=== PATIENT | male | born 1945 | race Caucasian/White ===

== ENCOUNTER 2016-09-02 16:50 | Emergency (ER) | payer MEDICARE, OTHER ==
[~2016-09-02 16:50] MED LIST: ALBUTEROL IN200 PUFF INH; COLACE100 MG PO; DUONEB 2.5-0.5MG3 ML NEB; FLOVENT INH; HYDROCODON-ACE1 EAC6 PO; LEVAQUIN500 MG PO; MEDROL4 M1 PO; MIRALAX17 GM PO; NEURONTIN400 MG PO; PRILOSEC20 MG PO
[2016-09-02 17:49] LABS: BASO % 0.1 % (0.2-1.2); EOS % 0.3 % (0.8-7.0); GRAN # 6.3 10_X3_uL (1.8-5.4); GRAN % 64.3 % (34.0-67.9); HEMATOCRIT 44.4 % (40-51); HEMOGLOBIN 14.8 g/dL (13.7-17.5); LYMPH # 2.3 10_X3_uL (1.3-3.6); LYMPH % 23.6 % (21.8-53.1); MEAN CORPUSCULAR HEMOGLOBIN 30.2 pg (27.0-33.0); MEAN CORPUSCULAR HGB CONC 33.3 g/dL (32.0-36.0); MEAN CORPUSCULAR VOLUME 90.6 fL (79-92); MEAN PLATELET VOLUME 10.1 fl (7.5-11.5); MONO # 1.1 10_X3_uL (0.3-0.8); MONO % 11.7 % (5.3-12.2); PLATELET COUNT 339 x10_3/uL (163-337); RED CELL DISTRIBUTION WIDTH 15.5 % (11.6-14.4); WHITE BLOOD COUNT 9.8 x10_3/uL (4.2-9.1)
[2016-09-02 18:06] LABS: ALBUMIN 4.3 gm/dL (3.4-5.0); BILIRUBIN,TOTAL 0.36 mg/dL (0.0-1.0); CALCIUM 9.6 mg/dL (8.7-10.7); CREATININE 1.3 mg/dL (0.6-1.3); POTASSIUM 3.8 mmol/L (3.5-5.1)
[2016-09-02 20:04] LABS: URINE BILIRUBIN NEGATIVE (NEGATIVE); URINE BLOOD TRACE (NEGATIVE); URINE GLUCOSE (UA) NORMAL (NORMAL); URINE KETONE NEGATIVE (NEGATIVE); URINE LEUKOCYTE ESTERASE NEGATIVE (NEGATIVE); URINE NITRATE NEGATIVE (NEGATIVE); URINE PROTEIN NEGATIVE (NEGATIVE); UROBILINOGEN NORMAL mg/dL (<1.0)
[2016-09-02 20:20] LABS: URINE AMORPHOUS SEDIMENT 1+; URINE BACTERIA TRACE (NONE SEEN)
== END 2016-09-02 19:50 | disposition home or self-care (01) ==
LOC: ER 16:50
PROVIDERS: Emergency Medicine
DX: R10.13 Epigastric pain (principal); J44.9 Chronic obstructive pulmonary disease, unspecified; Z90.49 Acquired absence of other specified parts of digestive tract; F17.210 Nicotine dependence, cigarettes, uncomplicated; Z88.6 Allergy status to analgesic agent; Z79.899 Other long term (current) drug therapy; Z82.49 Family history of ischemic heart disease and other diseases of the circulatory system
CPT/HCPCS: 36415; 51701; 74150; 80053; 81001; 82150; 82550; 82553; 83690; 85025; 93005; 99284; 99284-25

== ENCOUNTER 2016-09-09 14:45 | Emergency (ER) | payer MEDICARE, SELFPAY | END 2016-09-09 15:15 | disposition home or self-care (01) | LOC: ER 14:45 | DX: K21.9 Gastro-esophageal reflux disease without esophagitis (principal); J44.9 Chronic obstructive pulmonary disease, unspecified; Z99.81 Dependence on supplemental oxygen; R06.02 Shortness of breath; F17.210 Nicotine dependence, cigarettes, uncomplicated; Z88.6 Allergy status to analgesic agent | CPT/HCPCS: 99282; 99283 ==

== ENCOUNTER 2016-10-06 18:30 | Emergency (ER) | payer MEDICARE ==
[2016-10-06 19:12] LABS: BASO % 0.1 % (0.2-1.2); EOS # 0.1 10_X3_uL (0.0-0.5); EOS % 0.7 % (0.8-7.0); GRAN # 6.9 10_X3_uL (1.8-5.4); GRAN % 71.7 % (34.0-67.9); HEMATOCRIT 42.3 % (40-51); LYMPH # 1.7 10_X3_uL (1.3-3.6); LYMPH % 17.2 % (21.8-53.1); MEAN CORPUSCULAR HEMOGLOBIN 29.7 pg (27.0-33.0); MEAN CORPUSCULAR HGB CONC 33.1 g/dL (32.0-36.0); MEAN CORPUSCULAR VOLUME 89.6 fL (79-92); MEAN PLATELET VOLUME 10.5 fl (7.5-11.5); MONO % 10.3 % (5.3-12.2); PLATELET COUNT 273 x10_3/uL (163-337); RED BLOOD COUNT 4.72 x10_6/uL (4.6-6.1); RED CELL DISTRIBUTION WIDTH 14.7 % (11.6-14.4); WHITE BLOOD COUNT 9.6 x10_3/uL (4.2-9.1)
[2016-10-06 19:43] LABS: ALBUMIN 4.4 gm/dL (3.4-5.0); ALKALINE PHOSPHATASE 61 U/L (50-136); ALT/SGPT 9 U/L (7.53-40.17); AST/SGOT 15 U/L (6.66-35.34); BILIRUBIN,TOTAL 0.45 mg/dL (0.0-1.0); CALCIUM 9.7 mg/dL (8.7-10.7); CARBON DIOXIDE 29 mmol/L (21-32); CREATINE KINASE 110 U/L (35-232); CREATININE 1.2 mg/dL (0.6-1.3); GLUCOSE,RANDOM 129 mg/dL (70-99); LIPASE 18 U/L (6.75-60.75); POTASSIUM 3.7 mmol/L (3.5-5.1); SODIUM 137 mmol/L (136-145); TOTAL PROTEIN 6.8 gm/dL (6.4-8.2)
[2016-10-06 19:47] LABS: BLOOD UREA NITROGEN 23 mg/dL (7-18)
== END 2016-10-06 21:08 | disposition home or self-care (01) ==
LOC: ER 18:30
PROVIDERS: Internal Medicine
DX: K21.9 Gastro-esophageal reflux disease without esophagitis (principal); F41.9 Anxiety disorder, unspecified; R06.4 Hyperventilation; J60 Coalworker's pneumoconiosis; Z89.029 Acquired absence of unspecified finger(s); Z98.890 Other specified postprocedural states; F17.210 Nicotine dependence, cigarettes, uncomplicated; Z88.6 Allergy status to analgesic agent
CPT/HCPCS: 36415; 71010; 80053; 82550; 82553; 83690; 85025; 93005; 94664; 96374; 96375; 96376; 99070; 99284; 99284-25